=== PATIENT | male | born 1975 | race Caucasian/White ===

== ENCOUNTER → 2020-03-26 08:01 | Outpatient (CLI) | payer OTHER, SELFPAY ==
--- NOTE | 2020-03-26 | DI.ECHO.S_ITS ---
[facility] +---------+ : : [address] : [place] : : : : [id number] : : : : Phone: [phone]+ Echocardiogram Report + + :Name: KONG GARVIN Study Date: 03/26/2020 Height: 68 in : :[facility] Weight: 246 lb : : Gender: Male BSA: 2.2 m2 : :: 1975 Age: 44 yrs BP: 146/88 mmHg: :Reason For Study: CARDIAC CONDITION : :Ordering Physician: EMILY, : :ANNE-MARIE Performed By: Aurora Benavides : :Referring: ANNE-MARIE DIAZ : + + Interpretation Summary The left ventricle is normal in size. The ejection fraction is estimated to be 55-60%. The right ventricle is normal size. The right ventricular systolic function is normal. No significant valvular pathology seen. Procedure: A two-dimensional transthoracic echocardiogram with color flow and Doppler was performed. The study quality was technically adequate. The patient was in normal sinus rhythm during the exam. Left Ventricle: The left ventricle is normal in size. There is mild concentric left ventricular hypertrophy. A false chord is noted (normal variant). The ejection fraction is estimated to be 55-60%. There are no focal wall motion abnormalities. MV E/A: 1.1 Med Peak E' Chapito: 7.2 cm/sec E/E' med: 9.7. Right Ventricle: The right ventricle is normal size. The right ventricular systolic function is normal. Atria: Both atria are normal in size. A prominent eustachian valve is noted. There is no Doppler evidence for an interatrial shunt. Mitral Valve: The mitral valve leaflets appear mildly thickened, but open well. There is mild mitral annular calcification. There is trace mitral regurgitation. Aortic Valve: The aortic valve is trileaflet. The aortic valve opens well. There is no aortic valve stenosis. There is trace aortic regurgitation. Tricuspid Valve: The tricuspid valve is normal. Pulmonary artery pressures cannot be estimated because of the lack of a measurable TR jet velocity but the IVC suggests a CVP of around 3 mmHg. There is trace tricuspid regurgitation. Pulmonic Valve: The pulmonic valve is not well seen, but is grossly normal. There is trace pulmonic regurgitation. Great Vessels: The aortic root is normal size. The ascending aorta is at the upper limits of normal in size. The IVC is of normal diameter and collapses greater than 50% with a sniff. This suggests a low right atrial pressure of 3 mm Hg. Pericardium/ Pleura There is no pericardial effusion. There is an anterior echo-free space consistent with a fat pad. There is no pleural effusion. MMode/2D Measurements & Calculations LVIDd: 4.9 cm LVOT diam: 2.3 cm LVIDs: 3.1 cm Ao root diam: 3.7 cm FS: 37.5 % asc Aorta Diam: 3.5 cm EPSS: 1.5 cm Ao Arch Diam (Prox Trans): 2.9 cm IVSd: 1.2 cm LVPWd: 1.1 cm LV de leon. diameter/BSA (cm/m^2): 2.2 LV sys. diameter/BSA (cm/m^2): 1.4 LA A2 area: 20.0 cm2 RA long axis: 5.0 cm LA A4 area: 16.3 cm2 RA area: 15.7 cm2 LA length (vol): 5.3 cm RA vol: 41.6 ml LA vol: 52.3 ml RA : 18.6 ml/m2 LA vol index: 23.4 ml/m2 IVC diam: 0.97 cm RVD1 (basal): 2.7 cm TAPSE: 1.7 cm Doppler Measurements & Calculations Ao V2 max: 128.0 cm/sec LVOT Max Chapito: 81.5 cm/sec Ao V2 mean: 82.5 cm/sec LV V1 max P.7 mmHg Ao max P.6 mmHg LV V1 VTI: 16.0 cm Ao mean P.3 mmHg LENCHO(I,D): 2.3 cm2 Ao V2 VTI: 28.2 cm LENCHO(V,D): 2.6 cm2 sev ratio: 0.57 LENCHO indexed to BSA (cm^2/m^2): 1.0 MV E max chapito: 69.6 cm/sec PA V2 max: 68.1 cm/sec MV A max chapito: 61.7 cm/sec PA V2 mean: 50.5 cm/sec MV E/A: 1.1 PA mean P.1 mmHg Med Peak E' Chapito: 7.2 cm/sec PA pr(Accel): 36.2 mmHg E/E' med: 9.7 Lat Peak E' Chapito: 7.9 cm/sec E/E' lat: 8.8 E/e' average: 9.3 MV dec time: 0.20 sec SV(LVOT): 66.1 ml Reading Physician:03:45 PM
== END ==
PROVIDERS: PCP Family Medicine; Referring Provider Physician Assistant; Visit Provider Physician Assistant
DX: I51.9 Heart disease, unspecified (principal)
CPT/HCPCS: 93306

== ENCOUNTER → 2020-06-07 13:23 | Outpatient (CLI) | payer OTHER, SELFPAY ==
[2020-06-09 13:14] LABS: COVID19 Sendout Not Detected
== END ==
PROVIDERS: PCP Family Medicine; Visit Provider Physician Assistant
DX: Z11.59 Encounter for screening for other viral diseases (principal)
CPT/HCPCS: 87635

== ENCOUNTER 2020-06-10 09:12 | Day surgery (SDC) | payer OTHER, SELFPAY ==
[2020-06-07 08:38] VITALS: BMI 35.7
[2020-06-10] VITALS (7 sets, daily range): BP systolic 101–144; BP diastolic 62–90; PULSE 63–82; RESP 13–18; TEMP 36.1–37.1; O2SAT 91–98; BMI 36.0
[2020-06-10] MEDS: LACTATED RINGERS 1,000 ML 42 ML IV (09:50)
--- NOTE | 2020-06-10 10:12 | PM.HP.1 ---
History of Present Illness History of Present Illness Date Patient Seen: 06/10/20 Time Patient Seen: 10:13 Chief complaint: SDC Narrative: The patient is gentleman with a ventral hernia above his umbilicus in the region of a diastasis recti year for repair. Patient History Medical History Diverticulitis (Acute) HTN (hypertension) (Acute) Rosacea (Acute) Sleep apnea (Acute) Tendinopathy (Acute) Surgical History Hx of knee surgery (Acute 10/1991) Family & Social History Family History Grandfather Hypertension Heart disease Father Heart disease Grandmother Diabetes mellitus Social History: household members spouse,children Tobacco & Substance use: Tobacco type cigarettes Smoking Status Former smoker alcohol intake current alcohol intake frequency a few times a month Substance Use Type does not use Meds Home Medications and Allergies Home Medications Medication Instructions Recorded Confirmed Type amlodipine 5 mg tablet 5 mg PO BID 08/15/19 06/10/20 History telmisartan 40 1 tab PO DAILY 08/15/19 06/10/20 History mg-hydrochlorothiazide 12.5 mg tablet Allergies Allergy/AdvReac Type Severity Reaction Status Date / Time No Known Allergies Allergy Unknown Verified 06/10/20 09:51 [NO KNOWN ALLERGIES] Review of Systems Review of Systems ROS: Yes All systems reviewed with the patient and are negative except as otherwise documented Exam Vital Signs (past 8 hours): - 06/10/20 09:41 Temperature 97.3 F L Pulse Rate 82 Respiratory Rate 18 Blood Pressure 144/90 H Pulse Oximetry 97 Oxygen Delivery Method Room Air Narrative Exam Narrative: No apparent distress. Lungs are clear heart regular rate and rhythm without murmur gallop abdomen is protuberant soft. He has a diastasis recti. Above his navel in an area of diastasis recti he there is a reducible hernia. This is a ventral hernia. No other masses or tenderness. Assessment & Plan Assessment & Plan narrative: Patient with a ventral hernia. I have discussed the operation including laparoscopic versus open procedure. Risks of bleeding infection recurrence discussed. Use of mesh discussed. He appears to understand wishes to proceed.
--- NOTE | 2020-06-10 10:15 | PM.PREOP ---
Pre-operative Note COVID-19 COVID-19 status: Negative Result date/Date tested (Pos, Neg/Pending): 06/07/20 Interval Note History & Physical reviewed/Exam performed by Physician: Yes Changes to H&P: No
[2020-06-10] MEDS: CEFAZOLIN 2 GM/100 ML FROZ.PIGGY IV (10:18)
[2020-06-10] MEDS: BUPIVACAINE 0.5% (PF) VIAL 30 ML INJ (10:41)
--- NOTE | 2020-06-10 11:27 | PM.OP.1 ---
Operative Date/Time/Diagnoses Date of procedure: 06/10/20 Time of procedure: 11:09 Pre-op diagnosis: Ventral hernia above the umbilicus. Post-op diagnosis: same Procedure & Clinicians Procedure: Repair with underlay of mesh Same procedure as scheduled: Yes Indications: Symptomatic hernia Surgeon: Nathaniel Hines Click Yes if Unassisted: Yes Anesthesia Type: General Operative Notes Findings: Localized defect with a fairly large sac. Easily reducible. Closure Type: primary Specimen(s): none sent Prosthetic devices, grafts, tissues, transplants, or devices: 2.5 in diameter underlay of mesh. Estimated Blood Loss (mL): 5 Blood products transfused: none Procedure in detail: Patient was placed supine on the operating room table and underwent general LMA anesthesia. He was prepped and draped in the usual fashion. Local anesthetic was infiltrated overlying the hernia and incision made. This was above the umbilicus. Incision was carried down to the level the fascia. Hernia sac was easily identified opened and the fat reduced. The fascial edge was cleared and the tissue under the fascia on the and teary abdominal wall was cleared from the overlying muscle. There was a small hole in the peritoneum which was closed with 3 0 Vicryl. A 2 sided mesh was placed under the fascia and the fascia closed with a interrupted and [id number] 1. Ethibond. The subcu was closed with interrupted 3 0 Vicryl and skin was closed with a running 4 0 Vicryl subcuticular stitch and Steri-Strips. Dressing was applied and the patient was awakened and taken recovery room in good condition. He tolerated the procedure well. Complications: none Post-operative Condition: stable Disposition: PACU
[2020-06-10] MEDS: OXYCODONE/ACETAMINOPHEN 5/325 TABLET 1 TAB PO (12:01)
== END 2020-06-10 12:29 | disposition home or self-care (01) ==
PROVIDERS: PCP Family Medicine; Referring Provider Specialist; Visit Provider Specialist
PROC: (CPT 49560; principal; 2020-06-10 10:45)
DX: K43.9 Ventral hernia without obstruction or gangrene (principal); I10 Essential (primary) hypertension; G47.33 Obstructive sleep apnea (adult) (pediatric)
CPT/HCPCS: 49560; 49568; C1781; J0690; J1885; J2250; J2405; J2704; J3010